=== PATIENT | male | born 1970 | race Caucasian/White ===

== ENCOUNTER 2021-12-27 15:10 | Inpatient (IN) | payer OTHER ==
[~2021-12-27] VITALS: Ht 172.7 cm; Wt 82.6 kg
[2021-12-27 15:33] LABS: HEMOGLOBIN 13.4 gm/dl (14.0-17.5); RED BLOOD COUNT 4.77 M/UL (4.20-5.50); WHITE BLOOD COUNT 5.8 K/UL (4.5-11.0)
[2021-12-27 16:03] LABS: BUN/CREATININE RATIO 23 (0-10)
[2021-12-27] MEDS ORDERED: VITAMIN D21250 MCG PO (17:17)
[2021-12-27] MEDS ORDERED: CIPROFLOXACIN500 M1 PO (17:17)
[2021-12-27] MEDS ORDERED: PROZAC 20 MG CA20 MG PO (17:18)
[2021-12-27] MEDS ORDERED: VISTARIL 25 MG25 MG PO (17:19)
[2021-12-27] MEDS ORDERED: NOVOLOG FL100 UNIT/1 SQ (17:20)
[2021-12-27] MEDS ORDERED: FLOMAX 0.4 MG0.4 MG PO (17:21)
[2021-12-27] MEDS ORDERED: PROAIR HFA8.5 GM INH (17:22)
[2021-12-27] MEDS ORDERED: ATORVASTATIN CA80 MG PO (17:22)
[2021-12-27] MEDS ORDERED: ATENOLOL100 MG PO (17:22)
[2021-12-27] MEDS ORDERED: OMEPRAZOLE20 MG PO (17:23)
[2021-12-27] MEDS ORDERED: LISINOPRIL40 MG PO (17:23)
[2021-12-27] MEDS ORDERED: NIFEDIPINE ER30 M1 PO (17:23)
[2021-12-27] MEDS ORDERED: BASAGLAR K100 UNIT/1 SQ (17:24)
[2021-12-28 03:36] LABS: HEMOGLOBIN 12.1 gm/dl (14.0-17.5); RED BLOOD COUNT 4.36 M/UL (4.20-5.50)
[2021-12-28 04:43] LABS: BUN/CREATININE RATIO 18 (0-10)
[2021-12-29] MEDS ORDERED: VALACYCLOVIR500 MG PO (09:16)
[2021-12-29] MEDS ORDERED: ELIQUIS 5 MG TAB5 MG PO (09:16)
== END 2021-12-29 12:23 | disposition home or self-care (01) | DRG 74 ==
LOC: ER1 15:10 → MED SURG 4 16:53 → CDU 16:53 → MED SURG 4 17:19
PROVIDERS: Emergency Medicine; Physician Assistant Medical; ADMIT Internal Medicine Infectious Disease
PROC: B24BZZZ Ultrasonography of Heart with Aorta (ICD-10-PCS; principal; 2021-12-28)
DX: G51.0 Bell's palsy (principal); K86.1 Other chronic pancreatitis; Z20.822 Contact with and (suspected) exposure to COVID-19; E11.9 Type 2 diabetes mellitus without complications; I48.0 Paroxysmal atrial fibrillation; J45.909 Unspecified asthma, uncomplicated; I10 Essential (primary) hypertension; E78.5 Hyperlipidemia, unspecified; R47.81 Slurred speech; E78.00 Pure hypercholesterolemia, unspecified; Z79.01 Long term (current) use of anticoagulants; Z88.8 Allergy status to other drugs, medicaments and biological substances; Z88.5 Allergy status to narcotic agent; Z88.0 Allergy status to penicillin; Z82.49 Family history of ischemic heart disease and other diseases of the circulatory system; Z83.3 Family history of diabetes mellitus; Z98.49 Cataract extraction status, unspecified eye; Z79.899 Other long term (current) drug therapy; Z79.82 Long term (current) use of aspirin
CPT/HCPCS: ECHO; 36415; 70450; 70496; 70498; 70551; 71045; 80048; 80053; 80061; 82550; 82553; 82962; 83036; 83735; 84484; 85025; 85027; 85610; 85730; 92507; 92610; 93005; 93306; 97162; 97165; 97530; J1200; J1650; J2765; J7030; Q0177; Q9967; U0002